=== PATIENT | female | born 1955 | race Caucasian/White ===

== ENCOUNTER 2022-08-06 09:02 | Emergency (ER) | payer MEDICARE, MEDICAID, SELFPAY ==
[2022-08-06 09:05] VITALS: BP 180/93; PULSE 74; RESP 16; TEMP 36.2; O2SAT 99
[2022-08-06] MEDS: KETOROLAC 30 MG/ML VIAL (*BKC) IM (10:50)
--- NOTE | 2022-08-06 10:51 | ED.GENADULT ---
HPI - General Adult General Chief complaint: Back Pain/Injury Stated complaint: back spasms Time Seen by Provider: 08/06/22 10:33 History of Present Illness HPI narrative: 67-year-old female presenting to the emergency department for evaluation of acute on chronic back pain. Patient states she does have a history of degenerative disc disease and lower back pain. Patient denies any falls or injuries but states that she just recently moved to [place] and that she has been sleeping on an air mattress and only has a lawn chair to sit on. Patient does not have a local primary care physician. Patient has been taking Tylenol and using ice for pain control with no significant improvement. Patient reports he does have a history of allergies to hydrocodone and Vicodin. Patient denies any prior history of back surgery but states she does have history of chronic back pain and fibromyalgia Related Data Allergies Allergy/AdvReac Type Severity Reaction Status Date / Time acetaminophen [From Vicodin] Allergy Nausea and Verified 08/06/22 10:39 Vomiting amitriptyline [From Elavil] Allergy Nausea and Verified 08/06/22 10:38 Vomiting codeine Allergy Nausea and Verified 08/06/22 10:39 Vomiting hydrocodone [From Vicodin] Allergy Nausea and Verified 08/06/22 10:39 Vomiting sertraline [From Zoloft] Allergy Vomiting Verified 08/06/22 10:38 zolpidem [From Ambien] Allergy Nausea and Verified 08/06/22 10:38 Vomiting Review of Systems Review of Systems: CONSTITUTIONAL: Denies fever, chills, or sweats. EYES: Denies visual changes, redness, or discharge. ENT: Denies rhinorrhea, congestion, sore throat, or otalgia. CARDIOVASCULAR: Denies chest pain, palpitations, or edema. RESPIRATORY: Denies cough or dyspnea. GASTROINTESTINAL: Denies abdominal pain, nausea, vomiting, or diarrhea. GENITOURINARY: Denies dysuria or hematuria. SKIN: Denies rash or itching. MUSCULOSKELETAL: See HPI NEUROLOGIC: Denies headache, numbness, or weakness. Exam Narrative: APPEARANCE: Well appearing, no pain, no distress, well-nourished. HEAD: normocephalic, atraumatic. EYES: PERRLA/EOMI, conjunctivae clear. NOSE: Normal no drainage NECK: Supple. No adenopathy, no masses. RESPIRATORY: Airway patent, respirations nonlabored. Clear to auscultation bilaterally, no rales, rhonchi, wheezing. CARDIOVASCULAR: Regular rate and rhythm without murmurs rubs or gallops. ABDOMINAL: Soft, nontender, nondistended, normal bowel sounds MUSCULOSKELETAL: No midline tenderness to palpation. Right-sided paraspinal thoracic muscular tenderness to palpation. No deformity, or step-offs. NEURO: Alert. Cranial nerves II through XII intact. Grossly intact SKIN: Warm, dry. Normal Color PSYCHIATRIC: Normal affect/mood. Course Course Emergency Course: Patient was advised to establish a local primary care physician. Patient declined any medications for home. Patient was advised to take ibuprofen for pain control. Patient was treated with Toradol IM in the ED. Patient states this has worked previous for her. Vital Signs Vital signs: Vital Signs Temperature 97.2 F L 08/06/22 09:05 Pulse Rate 74 08/06/22 09:05 Respiratory Rate 16 08/06/22 09:05 Blood Pressure 180/93 H 08/06/22 09:05 Pulse Oximetry 99 08/06/22 09:05 Temperature 97.2 F L 08/06/22 09:05 Pulse Rate 74 08/06/22 09:05 Respiratory Rate 16 08/06/22 09:05 Blood Pressure 180/93 H 08/06/22 09:05 Pulse Oximetry 99 08/06/22 09:05 Medical Decision Making Vital Signs Vital Signs: Vital Signs Temperature 97.2 F L 08/06/22 09:05 Pulse Rate 74 08/06/22 09:05 Respiratory Rate 16 08/06/22 09:05 Blood Pressure 180/93 H 08/06/22 09:05 Pulse Oximetry 99 08/06/22 09:05 Temperature 97.2 F L 08/06/22 09:05 Pulse Rate 74 08/06/22 09:05 Respiratory Rate 16 08/06/22 09:05 Blood Pressure 180/93 H 08/06/22 09:05 Pulse Oximetry 99 08/06/22 09:05 Discha
== END 2022-08-06 11:38 | disposition home or self-care (01) ==
PROVIDERS: Emergency Provider Emergency Medicine
DX: M54.6 Pain in thoracic spine (principal); M79.7 Fibromyalgia; G89.29 Other chronic pain
CPT/HCPCS: 96372; 99283; J1885

== ENCOUNTER → 2023-06-12 12:37 | Outpatient (CLI) | payer MEDICARE, MEDICAID, SELFPAY ==
--- NOTE | ~2023-06-12 | MR_ITS ---
MRI of the right knee Clinical history: Pain Technique: Coronal proton density and proton density-weighted images, sagittal proton-density and T2 fat-sat images, and axial proton-density fat-saturated images were acquired. Findings: Anterior and posterior cruciate ligaments are intact. Medial collateral ligament is intact with mild chronic soft tissue edema. Lateral collateral ligament complex is intact. Popliteus tendon is intact. There is a radial tear at the posterior root of the medial meniscus. No lateral meniscal tear identif ied. There is high-grade chondromalacia the superior patellar apex/lateral patellar facet, with focal subc hondral cystic change. There is mild chondromalacia in the medial and lateral compartments. Extensor mechanism is intact. Small joint effusion present. No Meza's cyst. Impression: Radial tear at the posterior root of the medial meniscus. Probable reactive soft tissue edema about the MCL. Correlate with grade 1 MCL sprain. Chondromalacia, as detailed above, worst at the superior patellar apex/lateral patellar facet. Reviewed, dictated and finalized at [facility]. Impression: Radial tear at the posterior root of the medial meniscus. Probable reactive soft tissue edema about the MCL. Correlate with grade 1 MCL s prain. Chondromalacia, as detailed above, worst at the superior patellar apex/lateral patellar facet.
== END ==
PROVIDERS: PCP Orthopaedic Surgery; Visit Provider Family Medicine
DX: M25.561 Pain in right knee (principal); S83.241A Other tear of medial meniscus, current injury, right knee, initial encounter; M79.89 Other specified soft tissue disorders; M94.261 Chondromalacia, right knee
CPT/HCPCS: 73721